=== PATIENT | male | born 1980 | race Caucasian/White ===

== ENCOUNTER 2019-05-29 11:02 | Emergency (ER) | payer BC ==
[~2019-05-29] VITALS: Ht 190.5 cm; Wt 127.0 kg
[2019-05-29 11:08] VITALS: BP 137/91
== END 2019-05-29 12:19 | disposition home or self-care (01) ==
LOC: ED 11:29
DX: S80.02XA Contusion of left knee, initial encounter (principal); G89.11 Acute pain due to trauma; W06.XXXA Fall from bed, initial encounter; Y93.89 Activity, other specified; Y92.098 Other place in other non-institutional residence as the place of occurrence of the external cause; Y99.8 Other external cause status
CPT/HCPCS: 99283